=== PATIENT | male | born 1945 | race Caucasian/White ===

== ENCOUNTER 2021-05-24 18:44 | Emergency (ER) | payer MEDICARE, MEDICAID, SELFPAY ==
[2021-05-24 18:45] VITALS: BP 148/81; PULSE 81; RESP 16; TEMP 37; O2SAT 96; BMI 24.3
--- NOTE | 2021-05-24 18:45 | [facility].EDEXTP ---
ED Disposition Clinical Impression: Gangrene, Hyperglycemia due to diabetes mellitus Renal failure Qualifiers: Renal failure chronicity: unspecified chronicity Qualified Code(s): N19 - Unspecified kidney failure Disposition: Xfer Other Condition on Discharge: Serious Referrals: Provider,Referral, [Primary Care Provider] - - Critical Care Critical Care Time: No Attestation: On , the high probability of a clinically significant, sudden or life threatening deterioration of the following system(s) required my full and direct attention, intervention and personal management. The time I documented below is in addition to time spent performing reported procedures but includes the following listed in this critical care notation. Medical Decision Making - Medical Records Medical records reviewed: Yes: I reviewed the patient's medical records. - Dany Inquiry Pt receiving controlled substance: No Vital Signs: 05/24/21 18:45 05/24/21 20:00 05/24/21 20:30 Temperature 98.6 F Temperature Source Oral Pulse Rate [Right] 81 Respiratory Rate 16 12 18 Blood Pressure 141/79 H 155/82 H Blood Pressure [Right Arm] 148/81 H Blood Pressure Mean 101 109 Blood Pressure Mean [Right Arm] 103 Blood Pressure Source [Right Arm] Automatic Cuff Blood Pressure Position [Right Arm] Sitting 02 Sat by Pulse Oximetry 96 95 94 L Oxygen Delivery Method Room Air - Lab Data Lab results reviewed: Yes: I reviewed the patient's lab results. Lab Results 05/24/21 19:00: SARS-CoV-2 (PCR) Not detected, Influenza A Untype (PCR) Not detected, Influenza Type B (PCR) Not detected 05/24/21 19:06: WBC 15.7 H, RBC 4.50 L, Hgb 13.1 L, Hct 40.4 L, MCV 89.7, MCH 29.2, MCHC 32.6, RDW 13.3, Plt Count 494 H, MPV 8.9, Neut % (Auto) 83.5 H, Lymph % (Auto) 10.4, Real % (Auto) 4.0, Eos % (Auto) 0.6, Baso % (Auto) 1.4, Neut # (Auto) 13.1 H, Lymph # (Auto) 1.6, Real # (Auto) 0.6, Eos # (Auto) 0.1, Baso # (Auto) 0.2, Total Counted 100, Neutrophils % (Manual) 85 H, Band Neutrophils % 1.0, Lymphocytes % (Manual) 10, Monocytes % (Manual) 3, Eosinophils % (Manual) 1, Platelet Estimate Slight increase, RBC Morphology Normal 05/24/21 19:06: PT 12.1, INR 1.08, APTT 31.8 H 05/24/21 19:06: Sodium 127 L, Potassium 4.5, Chloride 93 L, Carbon Dioxide 19 L, Anion Gap 19.5 H, BUN 54 H, Creatinine 2.50 H, Estimated Creat Clear 26, Estimated GFR 25 L, Est GFR ( Amer) 31 L, Glucose 349 H, Calcium 9.1, Total Bilirubin 0.9, AST 45, ALT 48, Alkaline Phosphatase 278 H, Total Protein 8.7 H, Albumin 3.9, Globulin 4.8 H, Albumin/Globulin Ratio 0.8 L 05/24/21 19:06: Lactate 2.1 05/24/21 20:25: Urine Color Yellow, Urine Appearance Clear, Urine pH 6.0, Ur Specific [place] 1.020, Urine Protein 1+, Urine Glucose (UA) 3+, Urine Ketones Trace, Urine Blood 3+, Urine Nitrate Positive, Urine Bilirubin Negative, Urine Urobilinogen 0.2, Ur Leukocyte Esterase Trace, Urine RBC 10-20, Urine WBC 20-50 Result diagrams: 05/24/21 19:06 05/24/21 19:06 Orders (Tests/Meds): ED MEDICATIONS Generic Name Dose Route Start Last Admin Trade Name Freq PRN Reason Stop Dose Admin Sodium Chloride 10 ml 05/24/21 19:20 Sodium Chloride 0.9% 10ml Flush Syringe IV 06/23/21 19:19 NEEDED PRN Maintain IV Site Discontinued Medications Generic Name Dose Route Start Last Admin Trade Name Freq PRN Reason Stop Dose Admin Clindamycin Phosphate 900 mg/ 106 mls @ 100 mls/hr 05/24/21 18:49 05/24/21 19:59 Sodium Chloride IV 05/24/21 19:52 100 mls/hr ONCE ONE Administration ORDERS Category Date Time Status Blood Culture Stat Micro 05/24/21 19:11 Received Urine Culture Stat Micro 05/24/21 20:25 Received Wound Culture and Gram Stain Stat Micro 05/24/21 19:35 Received - Radiology Data #1 Image(s): Foot/Toes Image Reviewed: Yes I reviewed the patient's radiology image Preliminary Findings: Abnormal (Gas gangrene) - Physician Consults Physician Cons
--- NOTE | 2021-05-24 18:48 | XR_ITS ---
PROCEDURE INFORMATION: Exam: XR Right Foot Exam date and time: 05/24/2021 6:54 PM Age: 75 years old Clinical indication: Other: Gangrene to toes TECHNIQUE: Imaging protocol: XR Right foot. Views: 1 or 2 views. COMPARISON: No relevant prior studies available. FINDINGS: Bones/joints: Generalized osteopenia. The mild narrowing of the 1st through 5th metatarsophalangeal joints with associated regions of subcortical cystic erosive change. Paragraphs subtle lucent changes demonstrated in the subcutaneous tissues along the plantar aspect of the metatarsals as well as in the region of the 5th metatarsophalangeal articulation. No distinct mass. Soft tissues: Normal. Vasculature: Small vessel calcification. IMPRESSION: 1. Subcutaneous free air. Findings may correspond to necrotizing fasciitis. Abscess formation should also be considered. 2. Recommendations: Consider follow-up with computerized tomography. If there is concern for osteomyelitis, magnetic resonance imaging with contrast would be helpful.
[2021-05-24 19:07] LABS: Coronavirus 19, PCR Not Detected (NotDetected); Influenza A, PCR Not Detected (NotDetected); Influenza B, PCR Not Detected (NotDetected)
[2021-05-24 19:24] LABS: Chloride 93 mmol/L (98-107)
[2021-05-24 19:25] LABS: Basophils # 0.2 K/mm3 (0-0.2); Basophils % 1.4 % (0.1-2.0); Eosinophils # 0.1 K/mm3 (0.0-0.4); Eosinophils % 0.6 % (0.1-12.0); Hematocrit 40.4 % (42.0-52.0); Hemoglobin 13.1 g/dL (14.1-18.0); Lymphocytes # 1.6 K/mm3 (0.7-4.5); Lymphocytes % 10.4 % (10-50); Mean Corpuscular HGB Conc 32.6 g/dL (31.8-35.4); Mean Corpuscular Hemoglobin 29.2 pg (27.0-31.2); Mean Corpuscular Volume 89.7 fl (80-94); Mean Platelet Volume 8.9 fl (7.4-10.4); Monocytes # 0.6 K/mm3 (0.1-1.0); Neutrophils # 13.1 K/mm3 (1.8-7.8); Neutrophils % 83.5 % (37.0-80.0); Platelet Count 494 K/mm3 (142-424); Potassium 4.5 mmoL/L (3.5-5.1); Red Cell Distribution Width 13.3 % (11.5-17.5); Sodium 127 mmol/L (136-145); White Blood Count 15.7 K/mm3 (4.8-10.8)
--- NOTE | 2021-05-24 19:26 | PC.NURSE ---
Pt had clothing removed and was bathed due to bed bugs. Clothing was bagged and placed outside. Pt wallet was removed and he advised he had alot of dun[place] in it. ALESSIO Bojorquez and myself removed the wallet and counted the money inside which was $4000 in $100's and $12 in $1's. Pt was agreeable with us. Wallet was placed in bio bag and wrote on the outside how much was inside. Mo and myself signed it. Bio bag was sealed and placed in manilla envelope and sealed with tape in presence of day and mammalogist house supervisors. Pt valuable form was filled out by warehouse person and belongings were locked up at this time. Gave report to ALESSIO Alexander and passed this information along. Pt is aware that his wallet has been locked up.
[2021-05-24 19:27] LABS: Alanine Aminotransferase 48 U/L (12-78); Aspartate Amino Transferase 45 U/L (17-59); Blood Urea Nitrogen 54 mg/dl (9-20); Creatinine Clearance Estimated 26 mL/min (50-200); Estimated Glomerular Filt Rate 25 ml/min (>60); GFR (African American) 31 ML/MIN (>60)
[2021-05-24 19:28] LABS: Albumin Level 3.9 g/dl (3.5-5.0); Albumin/Globulin Ratio 0.8 (1.1-1.8); Alkaline Phosphatase 278 U/L (38-126); Anion Gap 19.5 mEq/L (5-15); Bilirubin,Total 0.9 mg/dl (0.2-1.3); Calcium 9.1 mg/dl (8.4-10.2); Carbon Dioxide 19 mmol/L (22.0-30.0); Globulin 4.8 g/dL (1.3-3.2); Glucose 349 mg/dl (74-100); Total Protein,Serum 8.7 g/dl (6.3-8.2)
[2021-05-24 19:30] LABS: Lactic Acid 2.1 mmol/L (0.7-2.1)
[2021-05-24 19:31] LABS: MANUAL DIFFERENTIAL MANUAL DIFFERENTIAL (MANUAL DIFF)
[2021-05-24 19:32] LABS: Activated Partial Thrombo Time 31.8 seconds (22.8-30.6); INR 1.08 (0.9-1.1); Prothrombin Time 12.1 seconds (10.1-12.5)
--- NOTE | 2021-05-24 19:48 | PC.NURSE ---
Dr. Manzo pagelucrecia
[2021-05-24 19:50] LABS: Eosinophils % 1 % (0-3); Lymphocytes % 10 % (10-50); Monocytes % 3 % (2-9); Neutrophils % 85 % (42-76); Platelet Estimate Slight Increase; RBC Morphology Normal; Total Cells Counted 100
--- NOTE | 2021-05-24 19:52 | PC.NURSE ---
VIVIENNE LRASON speaking with Dr. Manzo
[2021-05-24 20:00] VITALS: BP 141/79; RESP 12; O2SAT 95
--- NOTE | 2021-05-24 20:16 | PC.NURSE ---
VIVIENNE LARSON speaking with Dr. Beltran at [facility]
[2021-05-24 20:28] LABS: Microscopic, Urine URINE MICROSCOPIC (MICROSCOPIC)
[2021-05-24 20:30] VITALS: BP 155/82; RESP 18; O2SAT 94
[2021-05-24 20:32] LABS: Appearance,Urine CLEAR (Clear); Bilirubin,Urine Negative (Negative); Blood, Urine 3+ (Negative); Color,Urine YELLOW (Yellow); Glucose,Urine (UA) 3+ (Negative); Ketones,Urine TRACE (Negative); Leukocyte Esterase,Urine TRACE (Negative); Nitrate,Urine POSITIVE (Negative); Protein,Urine 1+ (Negative); Urobilinogen,Urine 0.2 EU/dl (0.2)
[2021-05-24 20:35] LABS: WBC,Urine 20-50 #/hpf (0-3)
--- NOTE | 2021-05-24 21:14 | PC.NURSE ---
wallet given to EMS contents still sealed
[2021-05-24 21:15] VITALS: BP 139/82; PULSE 83; RESP 20; TEMP 37; O2SAT 95
== END 2021-05-24 21:23 | disposition other institution (70) ==
PROVIDERS: Emergency Provider Emergency Medicine
DX: E11.52 Type 2 diabetes mellitus with diabetic peripheral angiopathy with gangrene (principal); M87.077 Idiopathic aseptic necrosis of right toe(s); H54.7 Unspecified visual loss; Z20.822 Contact with and (suspected) exposure to COVID-19
CPT/HCPCS: 73620; 80053; 81001; 83605; 85007; 85025; 85610; 85730; 87040; 87070; 87077; 87086; 87186; 87205; 96365; 96374; 99283; C9803; U0003; U0005